=== PATIENT | male | born 1965 | race Caucasian/White ===

== ENCOUNTER 2016-12-24 06:43 | Emergency (ER) | payer OTHER ==
[2016-12-24] MEDS: LORATADINE 10 MG TABLET PO ONE (06:55)
[2016-12-24] MEDS: diphenhydrAMINE HCL 50 MG/ML VIAL IVP ONE (07:00)
--- NOTE | 2016-12-24 07:01 | ED Physician Documentation ---
Allergy Symptoms - HISTORIAN Historian: patient - PAST HX Allergies/Adverse Reactions: Allergies Allergy/AdvReac Type Severity Reaction Status Date / Time No Known Allergies Allergy Verified 12/24/16 06:48 Home Medications: Ambulatory Orders Medication Instructions Recorded Hydroxyzine HCl [Atarax] 25 mg PO Q6H PRN #30 tablet 12/24/16 Naproxen Na-Diphenhydramin HCl 2 each PO DAILY 12/24/16 [Aleve Pm Caplet] Omeprazole [Prilosec] 40 mg PO DAILY 12/24/16 - VITAL SIGNS Vital Signs: Vital Signs Temp Pulse Resp BP Pulse Ox 119/89 10/28/15 04:25 ED Results Lab/Radiology - Orders Orders: ED Orders Category Date Time Status Famotidine/Pf [Pepcid] Med 12/24/16 06:50 Discontinued 20 mg IVP NOW ONE Loratadine [Claritin] Med 12/24/16 06:50 Discontinued 10 mg PO NOW ONE diphenhydrAMINE HCL [Benadryl] Med 12/24/16 06:50 Discontinued 25 mg IVP NOW ONE methylPREDNISolone SOD SUCC [Solu-MEDROL] Med 12/24/16 06:50 Discontinued 125 mg IVP NOW ONE Discharge Clincal Impression: Hives Prescriptions: Hydroxyzine HCl [Atarax] 25 mg PO Q6H PRN #30 tablet PRN Reason: itching Referrals: Primary Doctor,No [Primary Care Provider] - 2 Days Additional Instructions: Continue Benadryl 25-50mg by mouth every 6 hours until symptoms resolve Take either Claritan, Allergra, or Zyrtec daily until symptoms resolve. Zantac 150mg po bid - until symptoms resolve See your primary doctor or return to the ER if you have increase shortness of breath or difficulty breathing. Hives can be treated at home with the above Benadryl regimen. Home Medications: Ambulatory Orders Hydroxyzine HCl [Atarax] 25 mg PO Q6H PRN #30 tablet 12/24/16 Naproxen Na-Diphenhydramin HCl [Aleve Pm Caplet] 2 each PO DAILY 12/24/16 Omeprazole [Prilosec] 40 mg PO DAILY 12/24/16 Condition: Stable Disposition: 01 HOME, SELF-CARE Decision to Admit: NO Decision Time: 07:01
[2016-12-24] MEDS: methylPREDNISolone SOD SUCC 125 MG/2 ML VIAL IVP ONE (07:03)
[2016-12-24] MEDS: FAMOTIDINE/PF 20 MG/2 ML VIAL IVP ONE (07:05)
--- NOTE | 2016-12-24 07:22 | ED Physician Documentation ---
Low Back Pain - HISTORIAN Historian: patient - HPI Stated Complaint: SEVERE HIVES Chief Complaint: Lower Extremity Injury History: history of chronic pain:. denies: neck pain - PAST HX Allergies/Adverse Reactions: Allergies Allergy/AdvReac Type Severity Reaction Status Date / Time No Known Allergies Allergy Verified 12/24/16 06:48 Home Medications: Ambulatory Orders Medication Instructions Recorded Hydroxyzine HCl [Atarax] 25 mg PO Q6H PRN #30 tablet 12/24/16 Naproxen Na-Diphenhydramin HCl 2 each PO DAILY 12/24/16 [Aleve Pm Caplet] Omeprazole [Prilosec] 40 mg PO DAILY 12/24/16 - VITAL SIGNS Vital Signs: Vital Signs Temp Pulse Resp BP Pulse Ox 119/89 10/28/15 04:25 ED Results Lab/Radiology - Orders Orders: ED Orders Category Date Time Status Famotidine/Pf [Pepcid] Med 12/24/16 06:50 Discontinued 20 mg IVP NOW ONE Loratadine [Claritin] Med 12/24/16 06:50 Discontinued 10 mg PO NOW ONE diphenhydrAMINE HCL [Benadryl] Med 12/24/16 06:50 Discontinued 25 mg IVP NOW ONE methylPREDNISolone SOD SUCC [Solu-MEDROL] Med 12/24/16 06:50 Discontinued 125 mg IVP NOW ONE Discharge Clincal Impression: Hives Prescriptions: Hydroxyzine HCl [Atarax] 25 mg PO Q6H PRN #30 tablet PRN Reason: itching Referrals: Primary Doctor,No [Primary Care Provider] - 2 Days Additional Instructions: Continue Benadryl 25-50mg by mouth every 6 hours until symptoms resolve Take either Claritan, Allergra, or Zyrtec daily until symptoms resolve. Zantac 150mg po bid - until symptoms resolve See your primary doctor or return to the ER if you have increase shortness of breath or difficulty breathing. Hives can be treated at home with the above Benadryl regimen. Home Medications: Ambulatory Orders Hydroxyzine HCl [Atarax] 25 mg PO Q6H PRN #30 tablet 12/24/16 Naproxen Na-Diphenhydramin HCl [Aleve Pm Caplet] 2 each PO DAILY 12/24/16 Omeprazole [Prilosec] 40 mg PO DAILY 12/24/16 Condition: Stable Disposition: 01 HOME, SELF-CARE
[2016-12-24 07:24] VITALS: BP 85/57
== END 2016-12-24 07:22 | disposition home or self-care (01) ==
LOC: ED 06:43
DX: L50.9 Urticaria, unspecified (principal)
CPT/HCPCS: 96374; 96375; 99283; J1200; J2930; S0028; S1016

== ENCOUNTER 2018-06-08 15:35 | Emergency (ER) | payer BC, OTHER ==
[2018-06-08] MEDS ORDERED: ORPHENADRINE CITRATE 60 MG/2 ML ML IM ONE (16:14)
[2018-06-08] MEDS ORDERED: KETOROLAC TROMETHAMINE 60 MG/2 ML VIAL IM ONE (16:14)
[2018-06-08 17:33] LABS: BASOPHILS % 0.6 (0.0-1.5); EOSINOPHILS % 2.9 % (0.0-6.8); MONOCYTES % 5.5 % (0.0-11.0); NEUTROPHILS # 5.3 # k/uL (1.4-7.7)
[2018-06-08 17:47] LABS: eGFR (Non-African) > 60
--- NOTE | 2018-06-08 18:12 | ED Physician Documentation ---
Low Back Pain - HISTORIAN Historian: patient - HPI Stated Complaint: back pain Chief Complaint: Low Back Pain/ Injury History: back pain Onset: days ago Duration: continues in ED Recent Injury: No Further Comments: yes (53 year old male patient presents with complaint of low back pain. Patient reports long history of back pain. 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 Patient complains of numbness in feet, denies loss of bowel or bladder. Denies fall or trauma.) - ROS CONST: no problems CVS/RESP: none EYES/ENT: none MS/SKIN/LYMPH: none Neuro/Psych: none GI/: denies: abdominal pain - PAST HX Past History: back pain Other History: other (GERD) Allergies/Adverse Reactions: Allergies Allergy/AdvReac Type Severity Reaction Status Date / Time No Known Allergies Allergy Verified 12/24/16 06:48 Home Medications: Ambulatory Orders Medication Instructions Recorded Omeprazole [Prilosec] 40 mg PO DAILY 12/24/16 Baclofen [Liorasal] 10 mg PO TID PRN #30 tablet 06/08/18 Ketorolac Tromethamine [Toradol] 10 mg PO TID #15 tablet 06/08/18 - SOCIAL HX Smoking History: cigarettes - FAMILY HX Family History: denies: none - VITAL SIGNS Vital Signs: Vital Signs Temp Pulse Resp BP Pulse Ox 98.1 F 84 16 122/86 99 06/08/18 15:38 06/08/18 18:25 06/08/18 18:25 06/08/18 18:25 06/08/18 18:25 - REVIEWED ASSESSMENTS Nursing Assessment Reviewed: Yes Vitals Reviewed: Yes Progress - Progress Progress: Patient medicated with toradol and norflex IM. Difficulty with PACS and transferring images. Will discharge patient and call results. 1944 Report completed, called to . Encouraged follow up with PCP on Friday. ED Results Lab/Radiology - Lab Results Lab Results: Lab Results 06/08/18 06/08/18 17:16 17:16 WBC 9.10 K/ul K/ul (4.00-12.00) RBC 5.17 M/ul M/ul (3.90-5.20) Hgb 15.0 g/dL g/dL (12.0-18.0) Hct 45.0 % % (37.0-53.0) MCV 87.0 fl fl (80.0-100.0) MCH 29.0 pg pg (28.0-34.0) MCHC 33.3 g/dL g/dL (30.0-36.0) RDW 13.6 % % (11.3-14.3) Plt Count 224 K/mm3 K/mm3 (130-400) Neut % (Auto) 58.3 % % (39.0-79.0) Lymph % (Auto) 32.7 % % (16.0-50.0) [place] % (Auto) 5.5 % % (0.0-11.0) Eos % (Auto) 2.9 % % (0.0-6.8) Baso % (Auto) 0.6 (0.0-1.5) Neut # (Auto) 5.3 # k/uL # k/uL (1.4-7.7) Lymph # (Auto) 3.0 # k/uL # k/uL (0.6-4.0) [place] # (Auto) 0.5 # k/uL # k/uL (0.0-0.9) Eos # (Auto) 0.3 # k/uL # k/uL (0.0-0.6) Baso # (Auto) 0.1 # k/uL # k/uL (0.0-0.5) Sodium 140 mmol/L mmol/L (136-145) Potassium 3.6 mmol/L mmol/L (3.5-5.1) Chloride 99 mmol/L mmol/L (98-107) Carbon Dioxide 30 mmol/L mmol/L (22-30) BUN 13 mg/dL mg/dL (9-20) Creatinine 0.84 mg/dL mg/dL (0.66-1.25) Estimated Creat Clear 115 Est GFR ( Amer) > 60 (60 - ) Est GFR (Non-Af Amer) > 60 (60 - ) Glucose 91 mg/dL mg/dL (74-106) Calcium 9.5 mg/dL mg/dL (8.4-10.2) Total Bilirubin 0.3 mg/dL mg/dL (0.2-1.3) AST 25 U/L U/L (15-46) ALT 19 U/L U/L (13-69) Alkaline Phosphatase 80 U/L U/L (38-126) Total Protein 7.5 g/dL g/dL (6.3-8.2) Albumin 4.6 g/dL g/dL (3.5-5.0) - Radiology Radiology Impressions: CT of the lumbar spine without contrast Clinical history: Chronic back pain worsening over last 5 days. Numbness in the feet. Technique: CT of the lumbar spine is performed in contiguous axial slices with sagittal and coronal reconstructions. Findings: The alignment of the vertebrae is anatomic. There is narrowing of the L5-S1 disc space with minimal osteophyte formation. Small anterior osteophytes are seen in the mid lumbar vertebrae. There is no evident fracture. The diameter of the bony spinal canal is within normal limits. Degenerative facet changes are seen at L3-4, L4-5 and L5-S1. Posterior osteophytes at L5-S1 narrow the neural foramina worse on the left. AP diameter of the canal is within normal limits throughout. Impression: 1. Spondylosis. 2. No definite disc herniation or spinal stenosis. 3. No fracture. Electronically signed on Jun 08, 2018 7:44:00 PM REFUSE LABORER by: Kiran Schilling - Orders Orders: ED Orders Category Date Time Status CT L-SPINE W/O CONTRAST Stat Exams 06/08/18 Completed CBC/PLATELET/DIFF Stat Lab 06/08/18 17:16 Completed CMP Stat Lab 06/08/18 17:16 Completed UA W/MICRO IF INDICATED Stat Lab 06/08/18 16:14 Ordered Ketorolac Tromethamine [Toradol] Med 06/08/18 16:14 Discontinued 60 mg IM NOW ONE Orphenadrine Citrate [Norflex] Med 06/08/18 16:14 Discontinued 60 mg IM NOW ONE Low Back Pain/Injury - Physical Exam General Appearance: moderate distress EENT: eye inspection normal, MARC Resp/CVS: chest non-tender, breath sounds nml, heart sounds nml, no resp. distress, lungs clear, reg. rate & rhythm Abdomen: non-tender, no organomegaly, no pulsatile mass Back: non-tender, painless ROM, vertebral point-tendernes (L5-S1) Straight Leg Raising: Positive Left, Positive Right Neuro/Psych: oriented x3, motor nml, sensation nml, bilat. doriflexion nml, reflexes nml, mood/affect nml Skin: normal color, warm/dry, NR, INT, PAL, DR Extremities: non-tender, normal range of motion, no evidence of injury, no edema, J, PROJECT MANAGEMENT ANALYST Discharge Clincal Impression: Acute back pain Qualifiers: Back pain location: low back pain Back pain laterality: bilateral Sciatica presence: with sciatica Sciatica laterality: bilateral sciatica Qualified Code(s): M54.42 - Lumbago with sciatica, left side; M54.41 - Lumbago with sciatica, right side Prescriptions: Baclofen [Liorasal] 10 mg PO TID PRN #30 tablet PRN Reason: Spasms Ketorolac Tromethamine [Toradol] 10 mg PO TID #15 tablet Referrals: Mikki Dugan NP [Primary Care Provider] - 2 Days Additional Instructions: Ice Rest Elevation You may use Tylenol every 4hour as needed for pain. Limit your dose to less than 4 G per day. Do not take ibuprofen, aleve, naproxen or any other NSAID while you are on toradol. (ketoralac) You may want to try massage, over the counter lidocaine patches, biofreeze, [place] or aspercream . If you are unable to bear weight and continuing to have significant pain on day 3-4; see your PCP for re-evaluation and additional xrays. Condition: Stable Disposition: 01 HOME, SELF-CARE Decision to Admit: NO Decision Time: 18:12
[2018-06-08 18:26] VITALS: BP 122/86
--- NOTE | 2018-06-09 06:07 | Diagnostic Imaging Report ---
SALVATORE RUTLEDGE (CERTIFIED PATHOLOGY ASSISTANT) - ER [facility] [address] [facility] [address] [address] Report Submission Date: Jun 08, 2018 7:44:00 PM EMERGENCY SERVICE WORKER Patient Study Name: ROLO PAEZ Date: Jun 08, 2018 5:19:21 PM EMERGENCY SERVICE WORKER Modality Type: CT\SR Gender: M Description: CT L-SPINE W/O CONTRAS : 67 Institution: [facility] Physician: SALVATORE RUTLEDGE (ENOC) - ER CT of the lumbar spine without contrast Clinical history: Chronic back pain worsening over last 5 days. Numbness in the feet. Technique: CT of the lumbar spine is performed in contiguous axial slices with sagittal and coronal reconstructions. Findings: The alignment of the vertebrae is anatomic. There is narrowing of the L5-S1 disc space with minimal osteophyte formation. Small anterior osteophytes are seen in the mid lumbar vertebrae. There is no evident fracture. The diameter of the bony spinal canal is within normal limits. Degenerative facet changes are seen at L3-4, L4-5 and L5-S1. Posterior osteophytes at L5-S1 narrow the neural foramina worse on the left. AP diameter of the canal is within normal limits throughout. Impression: 1. Spondylosis. 2. No definite disc herniation or spinal stenosis. 3. No fracture. Electronically signed on Jun 08, 2018 7:44:00 PM EMERGENCY SERVICE WORKER by: Kiran ABEL
== END 2018-06-08 18:20 | disposition home or self-care (01) ==
LOC: ED 15:35
DX: M54.41 Lumbago with sciatica, right side (principal); M54.42 Lumbago with sciatica, left side
CPT/HCPCS: 36415; 72131; 80053; 85025; 96372; 99283; 99284; J1885; J2360

== ENCOUNTER 2018-06-10 10:26 | Outpatient (CLI) | payer OTHER | END 2018-06-10 10:28 | LOC: LAB 10:26 | PROVIDERS: ATTEND Nurse Practitioner Family | DX: M54.41 Lumbago with sciatica, right side (principal); M54.42 Lumbago with sciatica, left side; Z00.00 Encounter for general adult medical examination without abnormal findings | CPT/HCPCS: 36415; 80061; 85651; 86141 ==